=== PATIENT | male | born 1955 | race Caucasian/White ===

== ENCOUNTER 2017-10-05 12:16 | Outpatient (CLI) | payer OTHER ==
--- NOTE | 2017-10-05 13:38 | RAD ---
PA AND LATERAL VIEWS CHEST: HISTORY: Dyspnea on exertion. FINDINGS: The heart size is normal. The lungs are expanded without focal areas of consolidation, pneumothorax, darren pulmonary edema, or pleural effusions. IMPRESSION: No radiographic evidence of acute cardiopulmonary process. POS: OFF
== END 2017-10-05 12:17 | disposition home or self-care (01) ==
LOC: MADRAD 12:16
PROVIDERS: ATTEND Obstetrics & Gynecology
DX: R06.00 Dyspnea, unspecified (principal)
CPT/HCPCS: 71046